=== PATIENT | female | born 1990 | race African-American/Black ===

== ENCOUNTER 2019-09-05 11:44 | Emergency (ER) | payer MEDICAID ==
[~2019-09-05] VITALS: Ht 170.2 cm; Wt 100.0 kg
[2019-09-05] MEDS ORDERED: ONDANSETRON HCL 4MG/2ML INJ IV STA (12:51)
[2019-09-05] MEDS ORDERED: FAMOTIDINE 20MG/2ML VIAL IV STA (12:51)
[2019-09-05] MEDS ORDERED: SODIUM CHLORIDE 0.9% 1,000 ML IV ONE ×2 (12:51→16:27)
[2019-09-05 13:30] LABS: BASOPHILS % 0.2 % (0.0-2.0); EOSINOPHILS % 0.6 % (0.0-5.0); HEMATOCRIT. 39.3 % (36.0-48.0); HEMOGLOBIN. 12.9 g/dL (12.0-16.0); LYMPHOCYTES % 15.7 % (20.0-50.0); MEAN CORPUSCULAR HEMOGLOBIN 26.5 pg (28.0-32.0); MEAN CORPUSCULAR VOLUME 80.5 fL (81.0-99.0); MEAN PLATELET VOLUME 10.8 fl (7.4-10.4); MONOCYTES % 6.4 % (2.0-8.0); NEUTROPHILS % 77.1 % (40.0-76.0); PLATELET 241 x1000/uL (130-400); RED BLOOD CELL COUNT 4.88 mill/uL (4.2-5.4); RED CELL DISTRIBUTION WIDTH 14.5 % (11.6-14.6)
[2019-09-05 13:36] LABS: PROTHROMBIN TIME 10.7 sec (9.6-11.0)
[2019-09-05 13:38] LABS: CHLORIDE 107 mEq/L (98-107)
[2019-09-05] MEDS ORDERED: MECLIZINE 25MG TABLET PO ONE (14:00)
[2019-09-05] MEDS ORDERED: DEXAMETHASONE 10 MG/ML VIAL IV ONE (14:00)
[2019-09-05 14:24] LABS: CLARITY URINE CLEAR (CLEAR); COLOR URINE YELLOW (YELLOW); KETONES URINE NEGATIVE (NEGATIVE); LEUKOCYTE ESTERASE URINE NEGATIVE (NEGATIVE); NITRITE URINE NEGATIVE (NEGATIVE); OCCULT BLOOD URINE 2+ (NEGATIVE); PROTEIN URINE NEGATIVE (NEGATIVE); SPECIFIC GRAVITY URINE 1.003 (1.005-1.030); UROBILINOGEN URINE 0.2 E.U./dL (0.2-1.0)
[2019-09-05 17:39] VITALS: BP 124/85
== END 2019-09-05 17:57 | disposition home or self-care (01) ==
LOC: ER 11:44
DX: R42 Dizziness and giddiness (principal); R11.0 Nausea
CPT/HCPCS: 36415; 70450; 80053; 81003; 83690; 85025; 85610; 93005; 96361; 96374; 96375; 99284; J1100; J2405; J3490; J7030; J8597; Z7610

== ENCOUNTER 2019-09-23 21:10 | Emergency (ER) | payer MEDICAID, OTHER ==
[~2019-09-23] VITALS: Ht 167.6 cm; Wt 113.0 kg
[2019-09-24] MEDS ORDERED: ACETAMINOPHEN 325MG TABLET PO ONE (01:30)
[2019-09-24 03:50] VITALS: BP 128/79
== END 2019-09-24 03:51 | disposition home or self-care (01) ==
LOC: ER 21:10
DX: J02.9 Acute pharyngitis, unspecified (principal)
CPT/HCPCS: 87070; 87430; 99283

== ENCOUNTER 2020-07-26 14:33 | Emergency (ER) | payer OTHER ==
[~2020-07-26] VITALS: Ht 167.6 cm; Wt 118.0 kg
[2020-07-26] MEDS ORDERED: GABAPENTIN 300MG CAPSULE PO ONE (15:45)
[2020-07-26] MEDS ORDERED: NAPROXEN 250MG TABLET PO ONE (15:45)
[2020-07-26 17:00] VITALS: BP 137/77
== END 2020-07-26 17:00 | disposition home or self-care (01) ==
LOC: ER 14:33
DX: Z48.811 Encounter for surgical aftercare following surgery on the nervous system (principal); M79.644 Pain in right finger(s); R03.0 Elevated blood-pressure reading, without diagnosis of hypertension; Z98.890 Other specified postprocedural states
CPT/HCPCS: 99283

== ENCOUNTER 2020-10-19 17:56 | Emergency (ER) | payer OTHER ==
[~2020-10-19] VITALS: Ht 167.6 cm; Wt 118.0 kg
[2020-10-19 20:34] LABS: BASOPHILS % 0.5 % (0.0-2.0); EOSINOPHILS % 0.2 % (0.0-5.0); HEMATOCRIT. 36.9 % (36.0-48.0); HEMOGLOBIN. 12.4 g/dL (12.0-16.0); LYMPHOCYTES % 13.3 % (20.0-50.0); MEAN CORPUSCULAR HEMOGLOBIN 26.3 pg (28.0-32.0); MEAN PLATELET VOLUME 9.5 fl (7.4-10.4); MONOCYTES % 3.9 % (2.0-8.0); NEUTROPHILS % 82.1 % (40.0-76.0); PLATELET 272 x1000/uL (130-400); RED BLOOD CELL COUNT 4.73 mill/uL (4.2-5.4); RED CELL DISTRIBUTION WIDTH 14.3 % (11.6-14.6)
[2020-10-19 20:37] LABS: CHLORIDE 106 mEq/L (98-107)
[2020-10-19 20:54] LABS: HCG SCREEN NEGATIVE
[2020-10-19 21:50] VITALS: BP 142/88
== END 2020-10-19 21:51 | disposition home or self-care (01) ==
LOC: ER 17:56
DX: R00.2 Palpitations (principal); R42 Dizziness and giddiness; R11.0 Nausea
CPT/HCPCS: 36415; 80053; 81025; 84703; 85025; 93005; 99284

== ENCOUNTER 2020-12-22 17:18 | Emergency (ER) | payer MEDICAID, OTHER ==
[~2020-12-22] VITALS: Ht 167.6 cm; Wt 121.0 kg
[2020-12-22 21:14] VITALS: BP 140/74
== END 2020-12-22 21:17 | disposition home or self-care (01) ==
LOC: ER 17:18
DX: H10.33 Unspecified acute conjunctivitis, bilateral (principal); R03.0 Elevated blood-pressure reading, without diagnosis of hypertension
CPT/HCPCS: 99281

== ENCOUNTER 2023-05-14 04:55 | Emergency (ER) | payer MEDICAID, OTHER ==
[~2023-05-14] VITALS: Ht 167.6 cm; Wt 131.0 kg
[2023-05-14 05:10] VITALS: BP 139/73; PULSE 78; RESP 16; TEMP 97.5; O2SAT 100
[2023-05-14 07:30] LABS: BASOPHILS % 0.2 % (0.0-2.0); CHLORIDE 107 mEq/L (98-107); HEMATOCRIT. 38.6 % (36.0-48.0); HEMOGLOBIN. 12.2 g/dL (12.0-16.0); INDEX HEMOLYSI 1 (1-3); INDEX ICTERIC 1 (1-4); INDEX LIPEMIC 1 (1-3); LYMPHOCYTES % 26.7 % (20.0-50.0); MEAN CORPUSCULAR HEMOGLOBIN 25.5 pg (28.0-32.0); MEAN CORPUSCULAR HGB CONC 31.7 g/dL (31.0-37.0); MEAN CORPUSCULAR VOLUME 80.7 fL (81.0-99.0); MEAN PLATELET VOLUME 10.4 fl (7.4-10.4); MONOCYTES % 5.5 % (2.0-8.0); NEUTROPHILS % 66.6 % (40.0-76.0); PLATELET 266 x1000/uL (130-400); POTASSIUM 3.4 mEq/L (3.5-5.1); RED BLOOD CELL COUNT 4.78 mill/uL (4.2-5.4); RED CELL DISTRIBUTION WIDTH 15.1 % (11.6-14.6); SODIUM 137 mEq/L (136-145); WHITE BLOOD COUNT 12.3 x1000/uL (4.5-11.0)
[2023-05-14 07:40] LABS: ALANINE AMINOTRANSFERASE 32 IU/L (13-61); ALBUMIN 3.8 g/dL (3.4-5.0); ASPARTATE AMINOTRANSFERASE 12 IU/L (15-37); BILIRUBIN TOTAL 0.2 mg/dL (0.1-1.0); CALCIUM 8.6 mg/dL (8.5-10.1); CARBON DIOXIDE 24 mEq/L (21-32); CREATININE 0.9 mg/dL (0.6-1.3); GLUCOSE 101 mg/dL (70-105); PROTEIN TOTAL 7.4 g/dL (6.0-8.3); PROTHROMBIN TIME 10.6 sec (9.6-11.0); UREA NITROGEN BLOOD 11 mg/dL (7-21)
[2023-05-14 07:50] LABS: HCG SCREEN NEGATIVE
[2023-05-14 08:20] LABS: TROPONIN I HIGH SENSITIVITY < 4 ng/L (<54)
== END 2023-05-14 10:31 | disposition home or self-care (01) ==
LOC: ER 04:55
DX: R11.0 Nausea (principal)
CPT/HCPCS: 36415; 80053; 81025; 84484; 84703; 85025; 99283